=== PATIENT | male | born 1930 | race Caucasian/White ===

== ENCOUNTER 2017-06-30 18:32 | Emergency (ER) | payer MEDICARE, BC ==
--- NOTE | 2017-06-30 19:12 | EDM.PDOC ---
ED HPI GENERAL MEDICAL PROBLEM - General Chief Complaint: Gastrointestinal Problem Stated Complaint: NAUSEA,VOMITING,HIGH BP,DIZZY Time Seen by Provider: 06/30/17 19:02 Source of Information: Reports: Patient History Limitations: Reports: No Limitations - History of Present Illness INITIAL COMMENTS - FREE TEXT/NARRATIVE: 86-year-old male presents the ED with sudden onset of what I would describe as vertigo and he describes as trouble with his vision. At about 4:00 when he got up from a seated position at [facility]. He was able to walk but he is listing to the left side. He states he did drive his car 5 miles home without any issue. Has a moderate headache initially but this is somewhat better. Extremely nauseated and thought he was going to throw up on many occasions remains nauseated this time. He never did vomit. He's better if he lays still but he still feels his vision is 20 and not right. Heart focus on anything. Review similar problems. No ringing coming or buzzing in his ears. No recent sinus infection or upper respiratory tract infection. And cold at this time. Does not feel febrile. Her pressure checked at home was 180/67. Here it was 174/67. He states that is usually between 120 and 40 on the top number and in the 60s in the diastolic numbers. Onset: Today Onset Date: 06/30/17 Onset Time: 04:00 Duration: Hour(s): Location: Reports: Head (Yanes vision vertigo symptoms with movement associated nausea without vomiting mild headache.) Quality: Reports: Other Severity: Moderate (Offkilter and sensation swimming vision.) Improves with: Reports: Rest (He holds real still although he still feels his vision isn't right when he's lying still.) Worsens with: Reports: Movement Context: Reports: Other (126 occurrence when he stood up from the seated position while in [facility] today.). Denies: Activity, Exercise, Lifting, Sick Contact, Trauma Associated Symptoms: Reports: Loss of Appetite, Nausea/Vomiting, Other (Cannot eat supper. Balances often he's listing towards the left side.). Denies: Confusion, Chest Pain, Cough, cough w sputum, Diaphoresis, Fever/Chills, Headaches, Malaise, Rash, Seizure, Shortness of Breath, Syncope Treatments CATH LAB TECH: Reports: Other (see below) (None.) - Related Data Allergies Allergy/AdvReac Type Severity Reaction Status Date / Time Penicillins Allergy Cannot Verified 06/30/17 18:47 Remember Home Meds: Home Meds Amiodarone [Pacerone] 200 mg PO DAILY 06/30/17 [History] Glimepiride [Amaryl] 2 mg PO DAILY 06/30/17 [History] Losartan [Cozaar] 100 mg PO DAILY 06/30/17 [History] Meclizine [Antivert] 12.5 mg PO Q8H #15 tab 06/30/17 [Rx] amLODIPine Besylate [Amlodipine Besylate] 10 mg PO DAILY 06/30/17 [History] atorvaSTATin Calcium [Atorvastatin Calcium] 20 mg PO DAILY 06/30/17 [History] Past Medical History Cardiovascular History: Reports: Arrhythmia, High Cholesterol, Hypertension Genitourinary History: Reports: Prostate Disorder (Previous prostate cancer with total prostatectomy with PSAs below 0.4 for the last), Other (See Below) ( Does continue to have a urinary drip. No urinary tract infections) Neurological History: Reports: Other (See Below) (Patient gives a history of vertebrobasilar insufficiency. He states for many years now he cannot look up without getting point dizzy or lightheaded or off balance.) Endocrine/Metabolic History: Reports: Diabetes, Type II (Controlled with diet and medication orally.) Oncologic (Cancer) History: Reports: Prostate - Past Surgical History Cardiovascular Surgical History: Reports: Coronary Artery Stent Male Surgical History: Reports: Prostatectomy Social & Family History - Tobacco Use Smoking Status *Q: Former Smoker Years of Tobacco use: 10 Packs/Tins Daily: 2 Used Tobacco, but Quit: Yes Month Tobacco Last Used: 1 Second Hand Smoke Exposure: No - Caffeine Use Caffeine Use: Reports: Coffee - Alcohol Use Days Per Week of Alcohol Use: 1 Number of Drinks Per Day: 1 Total Drinks Per Week: 1 - Recreational Drug Use Recreational Drug Use: No - Living Situation & Occupation Living situation: Reports: Occupation: Retired ED ROS GENERAL - Review of Systems Review Of Systems: See Below Constitutional: Reports: Malaise, Weakness, Fatigue, Weight Loss. Denies: Fever , Chills HEENT: Reports: Glasses, Hearing Loss, Vertigo (Mild. Does not wear hearing aids ). Denies: Sinus Problem, Throat Pain Respiratory: Denies: Shortness of Breath ( see history of present illness), Wheezing, Pleuritic Chest Pain, Cough, Sputum Cardiovascular: Reports: No Symptoms, Blood Pressure Problem, Lightheadedness. Denies: Chest Pain, Claudication, Dyspnea on Exertion, Edema, Orthopnea (Has known high blood pressure.), Palpitations Endocrine: Reports: No Symptoms GI/Abdominal: Reports: Nausea. Denies: Vomiting : Reports: No Symptoms Musculoskeletal: Reports: No Symptoms Skin: Reports: No Symptoms Neurological: Reports: Dizziness, Difficulty Walking (Walking a little bit listing towards the left side a ataxia.), Other (Vertigo sensation.) Psychiatric: Reports: No Symptoms Hematologic/Lymphatic: Reports: No Symptoms Immunologic: Reports: No Symptoms ED EXAM, GI/ABD - Physical Exam Exam: See Below Exam Limited By: Uncooperative General Appearance: WD/WN, Mild Distress Eyes: Bilateral: Normal Appearance, Nystagmus (On right lateral gaze sustained.) Ears: Normal TMs Nose: Normal Inspection Throat/Mouth: Normal Inspection, Normal Lips, Normal Teeth, Normal Oropharynx, Other (Uvula is in the midline.) Head: Atraumatic, Normocephalic Neck: Normal Inspection, Supple, Non-Tender, Full Range of Motion. No: Lymphadenopathy (L), Lymphadenopathy (R) Respiratory/Chest: No Respiratory Distress, Lungs Clear, Normal Breath Sounds, No Accessory Muscle Use Cardiovascular: Normal Peripheral Pulses, Regular Rate, Rhythm, No Edema, No Gallop, No Murmur GI/Abdominal Exam: Normal Bowel Sounds, Soft, Non-Tender, No Organomegaly, Other (infraumbilical midline incision from previous total prostatectomy done by Dr. Braga - 20 years ago. This was done for cancer the prostate. His PSAs of the main below 0.04.) (Male) Exam: No Hernia Back Exam: Normal Inspection, Full Range of Motion. No: CVA Tenderness (L), CVA Tenderness (R) Extremities: Normal Inspection, Normal Range of Motion, Non-Tender, No Pedal Edema Neurological: Alert, Oriented, CN II-XII Intact, Normal Cognition, Normal Gait, No Motor/Sensory Deficits, Other (No pronator drift. Finger to nose assessment normal rapid alternating movements normal heel to vides normal.) Psychiatric: Normal Affect, Normal Mood Skin Exam: Warm, Dry, Intact, Normal Color, No Rash EKG INTERPRETATION EKG Date: 06/30/17 Time: 19:25 Rhythm: Other Rate (Beats/Min): 55 [place]: Normal P-Wave: Present (Borderline first-degree AV block) QRS: Other (Near Q-wave V1 and V2. Consider old anteroseptal myocardial infarction. Definite initial poor R-wave progression. Left ventricular hypertrophy pattern with strain.) ST-T: Other (Diffuse repolarization abnormalities.) QT: Prolonged (Markedly prolonged at 507.) EKG Interpretation Comments: Abnormal ECG Course - Vital Signs Last Recorded V/S: Last Vital Signs Temp 36.2 C 06/30/17 18:42 Pulse 60 06/30/17 18:42 Resp 12 06/30/17 19:45 BP 154/59 H 06/30/17 19:45 Pulse Ox 93 L 06/30/17 19:45 - Orders/Labs/Meds Orders: Active Orders 24 hr Category Date Time Status EKG Documentation Completion [RC] STAT Care 06/30/17 19:16 Active Dextrose 5%-0.9% NaCl [Dextrose 5%-Normal Saline] 1,000 Med 06/30/17 19:15 Active ml IV ASDIRECTED Medication Orders Dextrose/Sodium Chloride (Dextrose 5%-Normal Saline) 1,000 mls @ 250 mls/hr IV ASDIRECTED MURPHY Last Admin: 06/30/17 19:40 Dose: 250 mls/hr Labs: Laboratory Tests 06/30/17 06/30/17 06/30/17 Range/Units 18:50 18:50 18:50 WBC 9.79 H (4.23-9.07) K/mm3 RBC 4.43 L (4.63-6.08) M/mm3 Hgb 13.8 (13.7-17.5) gm/L Hct 41.9 (40.1-51.0) % MCV 94.6 H (79.0-92.2) fl MCH 31.2 (25.7-32.2) pg MCHC 32.9 (32.2-35.5) g/dl RDW Std Deviation 44.9 H (35.1-43.9) fL Plt Count 236 (163-337) K/mm3 MPV 9.8 (9.4-12.3) fl Neutrophils % (Manual) 84 H (40-60) % Band Neutrophils % 0 (0-10) % Lymphocytes % (Manual) 11 L (20-40) % Atypical Lymphs % 0 % Monocytes % (Manual) 1 L (2-10) % Eosinophils % (Manual) 4 (0.8-7.0) % Basophils % (Manual) 0 L (0.2-1.2) Platelet Estimate Adequate RBC Morph Comment Normal PT 10.7 (8.0-13.0) SECONDS INR 1.00 APTT 25 (22-36) SECONDS Sodium 139 (136-145) mEq/L Potassium 3.6 (3.5-5.1) mEq/L Chloride 103 (98-107) mEq/L Carbon Dioxide 25 (21-32) mEq/L Anion Gap 14.6 (5-15) BUN 39 H (7-18) mg/dL Creatinine 2.0 H (0.7-1.3) mg/dL Est Cr Clr Drug Dosing 25.65 mL/min Estimated GFR (MDRD) 32 (>60) mL/min BUN/Creatinine Ratio 19.5 H (14-18) Glucose 194 H (83-115) mg/dL Calcium 8.8 (8.5-10.1) mg/dL Magnesium 1.8 (1.8-2.4) mg/dl Total Bilirubin 0.3 (0.2-1.0) mg/dL AST 15 (15-37) U/L ALT 29 (16-63) U/L Alkaline Phosphatase 70 (46-116) U/L C-Reactive Protein < 0.2 (<1.0) mg/dL Total Protein 7.3 (6.4-8.2) g/dl Albumin 3.9 (3.4-5.0) g/dl Globulin 3.4 gm/dL Albumin/Globulin Ratio 1.2 (1-2) Urine Color (Yellow) Urine Appearance (Clear) Urine pH (5.0-8.0) Ur Specific [place] (1.005-1.030) Urine Protein (Negative) Urine Glucose (UA) (Negative) Urine Ketones (Negative) Urine Occult Blood (Negative) Urine Nitrite (Negative) Urine Bilirubin (Negative) Urine Urobilinogen (0.2-1.0) Ur Leukocyte Esterase (Negative) Urine RBC (0-5) /hpf Urine WBC (0-5) /hpf Ur Epithelial Cells (0-5) /hpf Urine Bacteria (FEW) /hpf Urine Mucus (FEW) /hpf 06/30/17 Range/Units 22:10 WBC (4.23-9.07) K/mm3 RBC (4.63-6.08) M/mm3 Hgb (13.7-17.5) gm/L Hct (40.1-51.0) % MCV (79.0-92.2) fl MCH (25.7-32.2) pg MCHC (32.2-35.5) g/dl RDW Std Deviation (35.1-43.9) fL Plt Count (163-337) K/mm3 MPV (9.4-12.3) fl Neutrophils % (Manual) (40-60) % Band Neutrophils % (0-10) % Lymphocytes % (Manual) (20-40) % Atypical Lymphs % % Monocytes % (Manual) (2-10) % Eosinophils % (Manual) (0.8-7.0) % Basophils % (Manual) (0.2-1.2) Platelet Estimate RBC Morph Comment PT (8.0-13.0) SECONDS INR APTT (22-36) SECONDS Sodium (136-145) mEq/L Potassium (3.5-5.1) mEq/L Chloride (98-107) mEq/L Carbon Dioxide (21-32) mEq/L Anion Gap (5-15) BUN (7-18) mg/dL Creatinine (0.7-1.3) mg/dL Est Cr Clr Drug Dosing mL/min Estimated GFR (MDRD) (>60) mL/min BUN/Creatinine Ratio (14-18) Glucose (83-115) mg/dL Calcium (8.5-10.1) mg/dL Magnesium (1.8-2.4) mg/dl Total Bilirubin (0.2-1.0) mg/dL AST (15-37) U/L ALT (16-63) U/L Alkaline Phosphatase (46-116) U/L C-Reactive Protein (<1.0) mg/dL Total Protein (6.4-8.2) g/dl Albumin (3.4-5.0) g/dl Globulin gm/dL Albumin/Globulin Ratio (1-2) Urine Color Yellow (Yellow) Urine Appearance Clear (Clear) Urine pH 6.0 (5.0-8.0) Ur Specific [place] 1.020 (1.005-1.030) Urine Protein Negative (Negative) Urine Glucose (UA) 2+ H (Negative) Urine Ketones 2+ H (Negative) Urine Occult Blood Negative (Negative) Urine Nitrite Negative (Negative) Urine Bilirubin Negative (Negative) Urine Urobilinogen 0.2 (0.2-1.0) Ur Leukocyte Esterase Negative (Negative) Urine RBC 0-5 (0-5) /hpf Urine WBC 0-5 (0-5) /hpf Ur Epithelial Cells 0-5 (0-5) /hpf Urine Bacteria Not seen (FEW) /hpf Urine Mucus Not seen (FEW) /hpf Meds: Medications Generic Name Dose Route Start Last Admin Trade Name Freq PRN Reason Stop Dose Admin Dextrose/Sodium Chloride 1,000 mls @ 250 mls/hr 06/30/17 19:15 06/30/17 19:40 Dextrose 5%-Normal Saline IV 250 mls/hr ASDIRECTED MURPHY Administration Discontinued Medications Generic Name Dose Route Start Last Admin Trade Name Freq PRN Reason Stop Dose Admin Lorazepam 0.5 mg 06/30/17 19:15 06/30/17 19:41 Ativan IVPUSH 06/30/17 19:16 0.5 mg ONETIME ONE Administration Meclizine HCl 25 mg 06/30/17 22:20 06/30/17 22:38 Antivert PO 06/30/17 22:21 25 mg ONETIME ONE Administration Metoclopramide HCl 10 mg 06/30/17 19:15 06/30/17 19:41 Reglan IVPUSH 06/30/17 19:16 10 mg ONETIME ONE Administration - Radiology Interpretation Free Text/Narrative:: 86-year-old male presents the ED with sudden onset of swimmy vision and then some troubles walking with listing towards the left side since he got up from [facility] at 4:00 today. Mild associated headache initially but this is better. Blood pressure noted to be much higher than normal with systolic in the 170s. Questionable hypertensive spike. He continues to be nauseated didn't have difficulty focusing his vision. He is better at rest when lying still and prefers to lie still with his eyes closed. Clinically has nystagmus sustained on right lateral gaze. Appears to have vertigo from the left labyrinth. Due to questionable hypertensive spike a CT of his head will be done. IV will be D5 normal saline at 250 mils per hour. Given Reglan 10 mg IV and Ativan 0.5 g IV for vertigo-like symptoms. We'll get him up in about an hour and a quarter to see how he can walk a diffuse gait is ataxic etc. CT head will be done with some routine labs. - Re-Assessments/Exams Free Text/Narrative Re-Assessment/Exam: 06/30/17 20:27 CT of the brain and head has been completed. It shows age- appropriate changes with slightly dilated lateral ventricles and diminished periventricular and subcortical white matter compatible with small slow small vessel ischemic demyelination changes. No CVA or lacunar infarcts identified. There is atherosclerotic calcification seen within the carotid siphon and vertebral vessels. No intracranial bleeding is evident. Visualized portions of sinuses are normal. 06/30/17 20:58 White count is 9.79 with 84% neutrophils no bands. Hemoglobin is 13.8 with hematocrit of 41.9. Platelet count is 236,000. PT is 10.7 with an INR 1.0. PTT is 25. Sodium is 139 with potassium of 3.6. Chloride 103 with a bicarbonate 25. And a gap is 14.6. BUN is 39. Creatinine is 2.0 suggesting mild volume depletion. Glucose is 194. Calcium is 8.8 magnesium is 1.8. Troponin is 0.3 C-reactive protein is less than 0.2. We'll try and get him up walking in his room at this time to see if he can ambulate with the still ataxic. 06/30/17 22:23 Road testing or when he got him up walking he did very well. Initially when he first got up he had a couple of steps that were little off balance but otherwise he could walk and pivot very normally. Much improved vision as well he did feel like he was swimming anymore. He will be given meclizine 25 mg per ora now. He will start Antivert tomorrow morning at 7:00 and take 12.5 mg every 8 hours for the next 5 days. He'll follow-up with his personal care physician in 7 days time or sooner if any other problem's occur. Departure - Departure Time of Disposition: 22:19 Disposition: Home, Self-Care 01 Condition: Fair Clinical Impression: Benign paroxysmal positional vertigo Qualifiers: Laterality: left Qualified Code(s): H81.12 - Benign paroxysmal vertigo, left ear - Discharge Information Prescriptions: Meclizine [Antivert] 12.5 mg PO Q8H #15 tab Instructions: Benign Positional Vertigo Referrals: Arnoldo Trimble MD [Primary Care Provider] - Forms: ED Department Discharge Additional Instructions: Evaluation the emergency room today in regards to development of vertigo symptoms which means it off balance offkilter sensation with nausea and as you described swimming vision. Examination identified the left vestibular apparatus her labyrinth is not working properly. CT scan of the brain did not reveal any signs of stroke. It does show evidence of the vertebral arteries that supply the back of your brain to be clogged up with hardening of the arteries. This is the reason that she cannot look up without losing her balance. We call this vertebrobasilar insufficiency. This system also supplies the labyrinth with blood supply and may or may not be part of the problem today. You're treated with intravenous fluids and medication Reglan 10 mg and Ativan 0.5 mg IV which brought the vertigo for the most part under control. Lab work did not show any other abnormalities. Suggest treatment with Antivert 12.5 mg every 8 hours for the next 5 days. The next tablet will be due about 7:00 tomorrow morning. Tablet is [id number] and you do not need to have a prescription to purchase it. Suggest follow-up with first care physician in about a week's time to see how you are getting along. If the vertigo worsens or vomiting occurs then returned to the ED. - My Orders Last 24 Hours: My Active Orders 06/30/17 19:15 Dextrose 5%-0.9% NaCl [Dextrose 5%-Normal Saline] 1,000 ml IV ASDIRECTED 06/30/17 19:16 EKG Documentation Completion [RC] STAT - Assessment/Plan Last 24 Hours: My Active Orders 06/30/17 19:15 Dextrose 5%-0.9% NaCl [Dextrose 5%-Normal Saline] 1,000 ml IV ASDIRECTED 06/30/17 19:16 EKG Documentation Completion [RC] STAT
[2017-06-30] MEDS ORDERED: Dextrose 5%-0.9% NaCl 1,000 ML IV SCH (19:15)
[2017-06-30] MEDS ORDERED: LORazepam 2 MG/ML SDV IVPUSH ONE (19:15)
[2017-06-30] MEDS ORDERED: Metoclopramide 10 MG/2 ML SDV IVPUSH ONE (19:15)
--- NOTE | 2017-06-30 20:16 | CT ---
Head CT Technique: Multiple axial sections through the brain were obtained. Intravenous contrast was not utilized. Comparison: No prior intracranial imaging. Findings: Ventricles along with basal cisterns and sulci over the convexities are moderately prominent. Mild diminished density is noted within the periventricular and subcortical white matter compatible with slight small vessel ischemic demyelination change. No other abnormal parenchymal densities are seen. Atherosclerotic calcification is seen within carotid siphon and vertebral vessels. Bone window settings were reviewed which shows no acute calvarial abnormality. Visualized sinuses are clear. Impression: 1. Senescent change as noted above. No acute intracranial abnormality is identified on noncontrast head CT exam. Diagnostic code #2
[2017-06-30] MEDS ORDERED: Meclizine 12.5 MG Tab PO ONE (22:20)
== END 2017-06-30 22:42 | disposition home or self-care (01) ==
LOC: JD.ED 18:32
DX: H81.12 Benign paroxysmal vertigo, left ear (principal); I10 Essential (primary) hypertension; E78.00 Pure hypercholesterolemia, unspecified; E11.9 Type 2 diabetes mellitus without complications; Z95.5 Presence of coronary angioplasty implant and graft; Z87.891 Personal history of nicotine dependence; Z79.84 Long term (current) use of oral hypoglycemic drugs; Z79.899 Other long term (current) drug therapy; Z88.0 Allergy status to penicillin
CPT/HCPCS: 36415; 70450; 80053; 81001; 83735; 85025; 85610; 85730; 86140; 93005; 96361; 96374; 96375; 99285; A9270; J2060; J2765; J7042; 93010; 99284-25

== ENCOUNTER 2017-10-26 17:18 | Emergency (ER) | payer BC, MEDICARE ==
[2017-10-26] MEDS ORDERED: Sodium Chloride 0.9% 10 ML Syringe FLUSH PRN (17:35)
[2017-10-26] MEDS ORDERED: Aspirin 81 MG Tab.Chew PO ONE (17:35)
[2017-10-26] MEDS: Nitroglycerin 0.4 MG Tab.SL SL PRN ×2 (17:47→17:52)
--- NOTE | 2017-10-26 18:05 | EDM.PDOC ---
ED HPI GENERAL MEDICAL PROBLEM - General Chief Complaint: Cardiovascular Problem Stated Complaint: CHEST PAINS Time Seen by Provider: 10/26/17 17:28 Source of Information: Reports: Patient History Limitations: Reports: No Limitations - History of Present Illness INITIAL COMMENTS - FREE TEXT/NARRATIVE: The patient presents with chest pain. He describes the pain as a tightness. It is worse with exertion. It will radiate up into his jaw. He has no shortness of breath with it. He has no fever, chills, cough, congestion or runny nose. The pain will usually go away when he rests but today it hung around. He has a history of coronary artery disease. He had a stent back in 1999. He had similar symptoms then. He did not have a heart attack. He still does have some pain but not much. He has no abdominal pain, nausea or vomiting. He has no swelling or pain in his legs. He has no history of PE or DVT. He does have a history of hypertension and hypercholesterolemia. He does not smoke. Onset: Gradual Duration: Week(s): (2) Location: Reports: Chest Quality: Reports: Other (Tightness) Severity: Moderate Improves with: Reports: None Worsens with: Reports: None Associated Symptoms: Reports: Chest Pain. Denies: Cough, Fever/Chills, Headaches, Nausea/Vomiting, Shortness of Breath - Related Data Allergies Allergy/AdvReac Type Severity Reaction Status Date / Time Penicillins Allergy Cannot Verified 10/26/17 17:28 Remember Home Meds: Home Meds Amiodarone [Pacerone] 200 mg PO DAILY 06/30/17 [History] Glimepiride [Amaryl] 2 mg PO DAILY 06/30/17 [History] Losartan [Cozaar] 100 mg PO DAILY 06/30/17 [History] amLODIPine Besylate [Amlodipine Besylate] 10 mg PO DAILY 06/30/17 [History] atorvaSTATin Calcium [Atorvastatin Calcium] 20 mg PO DAILY 06/30/17 [History] Brimonidine Tartrate [Alphagan P 0.1% Ophth Soln] 5 ml EYEBOTH BID 10/26/17 [ History] Levothyroxine 150 mcg PO ACBREAKFAST 10/26/17 [History] Saxagliptin HCl [Onglyza] 5 mg PO DAILY 10/26/17 [History] Spironolactone [Aldactone] 25 mg PO DAILY 10/26/17 [History] Past Medical History HEENT History: Reports: Hard of Hearing Cardiovascular History: Reports: Arrhythmia, High Cholesterol, Hypertension, Stents Genitourinary History: Reports: Prostate Disorder, Other (See Below) Neurological History: Reports: Other (See Below) (Patient gives a history of vertebrobasilar insufficiency. He states for many years now he cannot look up without getting point dizzy or lightheaded or off balance.) Endocrine/Metabolic History: Reports: Diabetes, Type II Oncologic (Cancer) History: Reports: Prostate - Past Surgical History Cardiovascular Surgical History: Reports: Coronary Artery Stent Male Surgical History: Reports: Prostatectomy Social & Family History - Family History Family Medical History: Noncontributory - Tobacco Use Smoking Status *Q: Former Smoker Used Tobacco, but Quit: No - Caffeine Use Caffeine Use: Reports: Coffee - Recreational Drug Use Recreational Drug Use: No - Living Situation & Occupation Living situation: Reports: Occupation: Retired ED ROS GENERAL - Review of Systems Review Of Systems: See Below Constitutional: Reports: No Symptoms HEENT: Reports: No Symptoms Respiratory: Reports: No Symptoms Cardiovascular: Reports: Chest Pain Endocrine: Reports: No Symptoms GI/Abdominal: Reports: No Symptoms : Reports: No Symptoms Musculoskeletal: Reports: No Symptoms Skin: Reports: Dryness ED EXAM, GENERAL - Physical Exam Exam: See Below Exam Limited By: No Limitations General Appearance: Alert, No Apparent Distress Ears: Normal External Exam Nose: Normal Inspection Head: Atraumatic, Normocephalic Neck: Normal Inspection Respiratory/Chest: No Respiratory Distress, Lungs Clear, Normal Breath Sounds Cardiovascular: Regular Rate, Rhythm, No Edema, No Murmur GI/Abdominal: Soft, Non-Tender, No Organomegaly, No Mass Back Exam: Normal Inspection Extremities: Normal Inspection EKG INTERPRETATION EKG Date: 10/26/17 Time: 17:24 Rhythm: Other (Sinus bardycardia) Rate (Beats/Min): 58 [place]: Normal P-Wave: Present QRS: Normal ST-T: Other (inverted T waves in the inferior leads) QT: Normal Course - Vital Signs Last Recorded V/S: Last Vital Signs Temp 98.7 F 10/26/17 17:20 Pulse 59 L 10/26/17 17:20 Resp 18 10/26/17 17:20 BP 135/57 L 10/26/17 17:52 Pulse Ox 98 07/02/18 17:20 - Orders/Labs/Meds Orders: Active Orders 24 hr Category Date Time Status Cardiac Monitoring [RC] . DIRECTED Care 10/26/17 17:35 Active EKG Documentation Completion [RC] STAT Care 10/26/17 17:36 Active Peripheral IV Care [RC] . DIRECTED Care 10/26/17 17:36 Active Chest 1V Frontal [CR] Stat Exams 10/26/17 17:36 Taken Nitroglycerin [Nitrostat] Med 10/26/17 17:35 Active 0.4 mg SL Q5M PRN Sodium Chloride 0.9% [Saline Flush] Med 10/26/17 17:35 Active 10 ml FLUSH ASDIRECTED PRN Peripheral IV Insertion Adult [OM.PC] Stat Oth 10/26/17 17:35 Ordered Medication Orders Nitroglycerin (Nitrostat) 0.4 mg SL Q5M PRN PRN Reason: Chest Pain Stop: 10/27/17 17:36 Last Admin: 10/26/17 17:52 Dose: 0.4 mg Admin: 10/26/17 17:47 Dose: 0.4 mg Sodium Chloride (Saline Flush) 10 ml FLUSH ASDIRECTED PRN PRN Reason: Keep Vein Open Last Admin: 10/26/17 17:45 Dose: 10 ml Labs: Laboratory Tests 10/26/17 10/26/17 Range/Units 17:40 17:40 WBC 7.58 (4.23-9.07) K/mm3 RBC 4.37 L (4.63-6.08) M/mm3 Hgb 13.7 (13.7-17.5) gm/L Hct 41.7 (40.1-51.0) % MCV 95.4 H (79.0-92.2) fl MCH 31.4 (25.7-32.2) pg MCHC 32.9 (32.2-35.5) g/dl RDW Std Deviation 45.4 H (35.1-43.9) fL Plt Count 201 (163-337) K/mm3 MPV 9.7 (9.4-12.3) fl Neut % (Auto) 80.7 H (34.0-67.9) % Lymph % (Auto) 8.2 L (21.8-53.1) % [place] % (Auto) 8.3 (5.3-12.2) % Eos % (Auto) 2.1 (0.8-7.0) Baso % (Auto) 0.3 (0.1-1.2) % Neut # (Auto) 6.12 H (1.78-5.38) K/mm3 Lymph # (Auto) 0.62 L (1.32-3.57) K/mm3 [place] # (Auto) 0.63 (0.30-0.82) K/mm3 Eos # (Auto) 0.16 (0.04-0.54) K/mm3 Baso # (Auto) 0.02 (0.01-0.08) K/mm3 Manual Slide Review Abnormal smear Sodium 138 (136-145) mEq/L Potassium 4.1 (3.5-5.1) mEq/L Chloride 104 (98-107) mEq/L Carbon Dioxide 26 (21-32) mEq/L Anion Gap 12.1 (5-15) BUN 42 H (7-18) mg/dL Creatinine 2.0 H (0.7-1.3) mg/dL Est Cr Clr Drug Dosing 25.18 mL/min Estimated GFR (MDRD) 32 (>60) mL/min BUN/Creatinine Ratio 21.0 H (14-18) Glucose 201 H (83-115) mg/dL Calcium 8.8 (8.5-10.1) mg/dL Total Bilirubin 0.3 (0.2-1.0) mg/dL AST 17 (15-37) U/L ALT 23 (16-63) U/L Alkaline Phosphatase 59 (46-116) U/L Troponin I 0.036 (0.00-0.056) ng/mL Total Protein 6.9 (6.4-8.2) g/dl Albumin 3.7 (3.4-5.0) g/dl Globulin 3.2 gm/dL Albumin/Globulin Ratio 1.2 (1-2) Meds: Medications Generic Name Dose Route Start Last Admin Trade Name Freq PRN Reason Stop Dose Admin Nitroglycerin 0.4 mg 10/26/17 17:35 10/26/17 17:52 Nitrostat SL 10/27/17 17:36 0.4 mg Q5M PRN Administration Chest Pain Sodium Chloride 10 ml 10/26/17 17:35 10/26/17 17:45 Saline Flush FLUSH 10 ml ASDIRECTED PRN Administration Keep Vein Open Discontinued Medications Generic Name Dose Route Start Last Admin Trade Name Divine PRN Reason Stop Dose Admin Aspirin 324 mg 10/26/17 17:35 10/26/17 17:46 Aspirin PO 10/26/17 17:36 324 mg ONETIME ONE Administration Enoxaparin Sodium 80 mg 10/26/17 18:54 10/26/17 19:00 Lovenox SUBCUT 10/26/17 18:55 80 mg ONETIME ONE Administration - Re-Assessments/Exams Free Text/Narrative Re-Assessment/Exam: 10/26/17 18:07 I ordered an IV saline lock, EKG, CXR, labs, aspirin and nitro. His EKG shows a sinus bradycardia with flipped T waves in the inferior leads. 10/26/17 18:40 His CXR shows cardiomegaly. HIs CBC looks good. His creatinine was elevated at 2 with a GFR of 32. His anion gap is elevated at 42. His glucose was elevated at 201. His troponin was negative at 0.036. He is pain free after aspirin and 2 nitro. I will call cardiology in [place]. I feel he has unstable angina. 10/26/17 19:[address] [facility] and talked with Dr Skinner and he accepted the patient. He wanted lovenox 80mg subcutaneous. There many transfers out and we are short on transportation rigs. We are looking for options right now. It may take a few hours. Departure - Departure Time of Disposition: 19:25 Disposition: DC/Tfer to Acute Hospital 02 Reason for Transfer *Q: Other Condition: Fair Clinical Impression: Unstable angina Referrals: Arnoldo Trimble MD [Primary Care Provider] - Forms: ED Department Discharge - My Orders Last 24 Hours: My Active Orders 10/26/17 17:35 Cardiac Monitoring [RC] . DIRECTED Nitroglycerin [Nitrostat] 0.4 mg SL Q5M PRN Sodium Chloride 0.9% [Saline Flush] 10 ml FLUSH ASDIRECTED PRN Peripheral IV Insertion Adult [OM.PC] Stat 10/26/17 17:36 EKG Documentation Completion [RC] STAT Peripheral IV Care [RC] . DIRECTED Chest 1V Frontal [CR] Stat - Assessment/Plan Last 24 Hours: My Active Orders 10/26/17 17:35 Cardiac Monitoring [RC] . DIRECTED Nitroglycerin [Nitrostat] 0.4 mg SL Q5M PRN Sodium Chloride 0.9% [Saline Flush] 10 ml FLUSH ASDIRECTED PRN Peripheral IV Insertion Adult [OM.PC] Stat 10/26/17 17:36 EKG Documentation Completion [RC] STAT Peripheral IV Care [RC] . DIRECTED Chest 1V Frontal [CR] Stat
[2017-10-26] MEDS ORDERED: Enoxaparin 80 MG/0.8 ML Syringe SUBCUT ONE (18:54)
--- NOTE | 2017-10-27 08:17 | CR ---
Chest: Portable view of the chest is obtained. Comparison: Prior chest x-ray of 05/07/12. Heart is slightly enlarged. Tortuous thoracic aorta is seen. Lungs are clear. Slight degenerative change and scoliosis is present within the spine. Impression: 1. Mild cardiomegaly. Nothing acute is seen. Diagnostic code #2
== END 2017-10-26 20:25 ==
LOC: JD.ED 17:18
DX: I20.0 Unstable angina (principal); E78.00 Pure hypercholesterolemia, unspecified; I10 Essential (primary) hypertension; E11.9 Type 2 diabetes mellitus without complications; Z79.899 Other long term (current) drug therapy; Z87.891 Personal history of nicotine dependence
CPT/HCPCS: 36415; 71045; 80053; 84484; 85025; 93005; 99285; A9270; J1650; J7050; 96372